=== PATIENT | female | born 1955 | race Caucasian/White ===

== ENCOUNTER 2019-11-01 06:02 | Observation (INO) ==
--- NOTE | 2019-09-30 19:46 | PAT Medication Instructions ---
Medication Instructions Date of Service September 30, 2019 Home Medications lisinopril 20 mg tablet 20 mg PO QAM 08/01/19 [History Confirmed 09/24/19] pravastatin 40 mg tablet 40 mg PO QPM 08/01/19 [History Confirmed 09/24/19] coenzyme Q10 [CoQ-10] 100 mg PO DAILY 09/24/19 [History Confirmed 09/24/19] multivitamin 1 cap PO DAILY 09/24/19 [History Confirmed 09/24/19] omeprazole magnesium 20 mg PO QAM 09/24/19 [History Confirmed 09/24/19] turmeric root extract 500 mg PO BID 09/24/19 [History Confirmed 09/24/19] STOP taking 2 weeks before surgery (or as soon as possible if surgery is within 2 weeks) coenzyme Q10 [CoQ-10] 100 mg PO DAILY 09/24/19 [History Confirmed 09/24/19] turmeric root extract 500 mg PO BID 09/24/19 [History Confirmed 09/24/19] DO NOT take the morning of surgery lisinopril 20 mg tablet 20 mg PO QAM 08/01/19 [History Confirmed 09/24/19] multivitamin 1 cap PO DAILY 09/24/19 [History Confirmed 09/24/19] Take morning of surgery With a small sip of water, OTHERWISE NOTHING TO EAT OR DRINK AFTER MIDNIGHT: omeprazole magnesium 20 mg PO QAM 09/24/19 [History Confirmed 09/24/19] Take evening before surgery pravastatin 40 mg tablet 40 mg PO QPM 08/01/19 [History Confirmed 09/24/19] Other Notes If you have any questions please call us at [phone] or [phone] or [phone] or [phone]
--- NOTE | 2019-10-01 12:50 | Anesthesiology Consultation ---
Date of Service October 01, 2019 Assessment & Plan (1) Encounter for pre-operative examination: - Awaiting review of preop testing (labs, EKG, CXR). Chart Review Chart Review: Patient seen in Pre Admission Testing Teaching & Discussion Pre-Anesthesia Teaching/Discussion Notes: Instructed NPO after midnight before surgery,except medications with 15 cc of water. Medication instructions provided according to the PAT guidelines. History Surgery Operation Date: 11/01/19 07:00 Proposed Procedures p Right Total Hip Arthroplasty - Edward Koehler MD Height/Weight Height: 5 ft 6 in Weight: 117.9 kg Allergies Allergy/AdvReac Type Severity Reaction Status Date / Time No Known Allergies Allergy Verified 09/24/19 08:04 Medications Home Medications Medication Instructions Recorded Confirmed Last Taken lisinopril 20 mg tablet 20 mg PO QAM 08/01/19 09/24/19 Unknown pravastatin 40 mg tablet 40 mg PO QPM 08/01/19 09/24/19 Unknown coenzyme Q10 [CoQ-10] 100 mg PO DAILY 09/24/19 09/24/19 Unknown multivitamin 1 cap PO DAILY 09/24/19 09/24/19 Unknown omeprazole magnesium 20 mg PO QAM 09/24/19 09/24/19 Unknown turmeric root extract 500 mg PO BID 09/24/19 09/24/19 Unknown Past Medical History Medical History Acid reflux controlled Degenerative joint disease of right hip History of vertigo BPPV Hyperlipidemia Hypertension Morbid obesity Exercise / Class Metabolic Activity II 4-5 Yardwork/Stairs/Walk up hill Past Family History Family History Other Family history of breast cancer in mother Past Surgical History Surgical History History of appendectomy History of colonoscopy History of eye surgery GROWTH REMOVED FROM EYELID History of hand surgery R (PIN REMOVAL) History of right breast biopsy History of tubal ligation Past Anesthesia History No Hx of Anesthesia Complications and No Family Hx of Anesthesia Complications History of PONV No Hx of PONV and Hx of Motion Sickness Social History Smoking Status: Never smoker Do You Dip or Chew Tobacco: No Hx Alcohol Use: Yes Alcohol type: beer alcohol intake frequency: a few times a week Hx Substance Use: No substance use type: does not use Review of Systems Reflux controlled. Patient denies chest pain, shortness of breath, dyspnea on exertion, cough, wheezing, palpitations. Physical Exam Vital Signs VITALS BP 128/81 P 80 TEMP 97.9 SP02 96%R RESP 18 PHYSICAL Full neck and c-spine range of motion. Full TMJ range of motion. TMD 3 nger breaths Mallampati Score 3 Dentition: missing sides, crown on side Lungs: clear throughout to auscultation Cardiac: regular rate and rhythm, no murmurs noted Spine: normal Carotid arteries: negative bruit Extremities: no edema
[2019-10-01 13:54] LABS: Basophils # (auto) 0.02 K/uL (0-0.2); Basophils % (auto) 0.3 %; Eosinophils % (auto) 1.3 %; Hematocrit (blood only) 42.4 % (37-47); Hemoglobin 14.4 g/dL (12.0-16.0); Immature Granulocytes # (auto) 0.01 K/uL (0.00-0.02); Immature Granulocytes % (auto) 0.1 %; Lymphocytes # (auto) 1.42 K/uL (1.2-3.4); Lymphocytes % (auto) 18.9 %; Mean Corpuscular Hemoglobin 29.6 pg (25-34); Mean Corpuscular Volume 87.1 fL (80-100); Mean Platelet Volume 10.2 fL (7.4-10.4); Monocytes # (auto) 0.52 K/uL (0.11-0.59); Monocytes % (auto) 6.9 %; Neutrophils # (auto) 5.44 K/uL (1.4-6.5); Neutrophils % (auto) 72.5 %; Platelet Count 248 K/uL (130-400); RDW Coefficient of Variation 13.7 % (11.5-14.5); RDW Standard Deviation 43.2 fL (36.4-46.3); Red Blood Count 4.87 M/uL (4.2-5.4); White Blood Count 7.51 K/uL (4.8-10.8)
--- NOTE | 2019-10-01 14:04 | XRay Report ---
XR chest Pre-admission PA/Lat CLINICAL HISTORY: Preoperative chest COMPARISON STUDY: No previous studies for comparison. FINDINGS: The cardiac and mediastinal contours are normal. There is no evidence of focal pulmonary co nsolidation. There is no evidence of failure. No pleural effusions are visualized.[ IMPRESSION: No active disease in the chest. ACT 112: Negative or not required by law. Electronically signed by: Radu Garcia M.D. 10/01/2019 2:03 PM
[2019-10-01 14:08] LABS: BUN Creatinine Ratio 19.6 (10-20); Calcium 9.5 mg/dl (8.5-10.1); Creatinine Clr Calc Pharmacy 96.4 ml/min; Est GFR (African American) 94.6; Est GFR (Non-African American) 81.6; Potassium 4.1 mmol/L (3.5-5.1)
[2019-10-01 14:25] LABS: Partial Thromboplastin Ratio 0.9; Partial Thromboplastin Time 24.8 Seconds (21.0-31.0); Prothrombin Time 10.3 Seconds (9.0-12.0)
--- NOTE | 2019-10-01 23:05 | Electrocardiogram Report ---
Test Reason : Blood Pressure : / mmHG Vent. Rate : 083 BPM Atrial Rate : 083 BPM P-R Int : 140 ms QRS Dur : 074 ms QT Int : 354 ms P-R-T Axes : 044 037 037 degrees QTc Int : 415 ms Normal sinus rhythm Normal ECG No previous ECGs available Confirmed by Will Munoz ([id number]) on 10/01/2019 11:05:34 PM Referred By: Edward Koehler Confirmed By:Will Munoz
--- NOTE | 2019-10-26 09:54 | History and Physical Report ---
DATE OF ADMISSION: 11/01/2019 CHIEF COMPLAINT: Right hip pain, discomfort, and stiffness. HISTORY OF PRESENT ILLNESS: The patient is a 64-year-old female from [place] who presents for treatment of her right hip. She has a 1-year history of gradually increasing right hip pain and discomfort that has gotten worse despite conservative care. She initially saw her primary care doctor, who has put on some Aleve and ibuprofen which did not help too much. She sought chiropractic treatment which did not help either. She describes groin pain, thigh pain and some buttock pain. The more she walks, the more it hurts. By the end of the day, she has quite a bit of pain and limping quite a bit. She has difficulty putting her shoes and socks on. She would now like to proceed with definitive treatment. PAST MEDICAL HISTORY: 1. Elevated cholesterol. 2. Hypertension. PAST SURGICAL HISTORY: Include: 1. Appendectomy. 2. Tubal ligation. 3. Breast biopsy. ALLERGIES: None. CURRENT MEDICATIONS: 1. Lisinopril. 2. Pravastatin. SOCIAL HISTORY: Significant for 64-year-old female. She is from [place]. I believe she is and . 1-2 drinks per week. She has 2 children. FAMILY HISTORY: Significant for breast cancer. REVIEW OF HISTORY: Negative for diabetes, neurologic problem, vascular problems or bleeding disorders. Denies any chest pain or shortness of breath. No history of DVT or PE. She does have multiple other musculoskeletal aches and pains. PHYSICAL EXAMINATION: GENERAL: Shows a pleasant, middle-aged female, looks to be in pretty good health. HEENT: Benign. NECK: Supple, no lymphadenopathy. LUNGS: Clear to auscultation. HEART: Has a regular rate and rhythm. ABDOMEN: Soft, nontender, nondistended. EXTREMITIES: Grossly neurovascularly intact except as follows. Examination of the right hip revealed patient walks with slightly antalgic gait. Leg lengths clinically appear pretty equal. She does have pain with hip motion. She can internally rotate to neutral at best. External rotation at 25-30 degrees. Negative straight leg raise. She is neurologically intact. X-RAYS: X-rays of the right hip were reviewed. Shows advanced right hip DJD. She has complete loss of her joint space symmetrically. Bone density looks pretty good. Her IM canal is pretty thin. ASSESSMENT: A 64-year-old female with advanced right hip degenerative joint disease. She has failed conservative treatment and would like to have her right hip replaced. PLAN: We are going to proceed with total hip replacement. The risks and benefits of total hip replacement were explained to the patient including but not limited to DVT, PE, , infection, neurological injury, vascular injury, bleeding problem, pain, limited range of motion, stiffness, failure to relieve symptoms, incomplete relief of symptoms, need for further surgery in future, fracture, leg length inequality, nerve palsy, etc. The patient understands and desires to proceed. Informed consent was obtained. As far as discharge plans, she will likely be discharged to home with some home health. She will certainly need some assistance at home. We did talk about holding her lisinopril the morning of surgery.
[~2019-11-01 06:02] MED LIST: ACETAMINOPHEN 500 MG TAB PO SCH; FAMOTIDINE 20 MG TAB PO SCH; GABAPENTIN 300 MG CAP PO SCH; LR 500ML BOLUS, THEN 15ML/HR IV SCH; LR 60ML/HR IV SCH; METOCLOPRAMIDE HCL 10 MG TABLET PO SCH; SCOPOLAMINE 1.5 MG TDSY TD SCH; TRANEXAMIC ACID 1,000 MG **IV Intra-op IV SCH
[2019-11-01] MEDS ORDERED: BUPIVACAINE 0.5 % 5 MG/1 ML PF 10ML VIAL ONE (06:23)
--- NOTE | 2019-11-01 06:53 | History & Physical Bridge Note ---
Date of Service November 01, 2019 History & Physical Bridge Note I have examined the patient, reviewed the History & Physical and in the interval since the performance of the History & Physical I have noted the following changes of clinical significance: no changes noted
[2019-11-01] MEDS: CEFAZOLIN 2000MG 2,000 MG/15 ML SYR IV SCH ×4 (07:05→23:57)
[2019-11-01] MEDS ORDERED: fentaNYL citrate 100 MCG/2 ML VIAL ONE (07:32)
[2019-11-01] MEDS ORDERED: LIDOCAINE HCL 2% 2 ML VIAL/AMP(20MG/ML) INFIL ONE (07:32)
[2019-11-01] MEDS ORDERED: ONDANSETRON INJ 2 MG/ML 2 ML VIAL ONE (07:32)
[2019-11-01] MEDS ORDERED: PROPOFOL IV EMULSION 10 MG/ML 20 ML VIAL IV ONE (07:32)
[2019-11-01] MEDS ORDERED: MIDAZOLAM HCL 1 MG/ML 2ML VIAL ONE (07:32)
[2019-11-01] MEDS ORDERED: MoRPHine SULFATE PF 1 MG/ML 10 ML AMP/VIAL ONE (07:36)
[2019-11-01] MEDS ORDERED: BACITRACIN INJ 50,000 UNIT VIAL ONE (08:35)
[2019-11-01] MEDS ORDERED: BUPIVACAINE/EPINEPHRINE 0.5% MPF 1:200,000 10 ML VIAL ONE (08:35)
[2019-11-01] MEDS ORDERED: VASOPRESSIN 20 UNIT/ML VIAL ONE (10:23)
[2019-11-01] MEDS ORDERED: PHENYLEPHRINE HCL 10 MG/ML VIAL ONE (10:23)
--- NOTE | 2019-11-01 10:51 | Post Operative Brief Note ---
PG Immediate Post Op with CF Date of Surgery November 01, 2019 Pre & Post Diagnosis Operation Date: 11/01/19 08:50 Pre-Op Diagnosis: Right Hip Advanced Degenerative Joint Disease Post-Op Diagnosis: Right Hip Advanced Degenerative Joint Disease I identified the patient and participated in the time-out.: Yes Procedure Operation Date: 11/01/19 08:50 Actual Procedures p Right Total Hip Replacement(Right) - Edward Koehler MD Surgeon Edward Koehler MD Chip Loft Worker Marlon, PAC Estimated Blood Loss 300 Findings Consistent with Post-Op Diagnosis Fluids 2000 cc Specimens Specimen Description: A. Right Femoral Head Drains Alonso Catheter (A 16 Palestinian alonso catheter was inserted by ELIO Frank, without difficulty, clear yellow urine obtained, output to be monitored by Anesthesia.) Anesthesia Type Spinal MAC Complications none Disposition Disposition: Recovery Room
--- NOTE | 2019-11-01 11:03 | Operative Report ---
Post Operative Report Pre & Post Diagnosis Operation Date: 11/01/19 08:50 Pre-Op Diagnosis: Right Hip Advanced Degenerative Joint Disease Post-Op Diagnosis: Right Hip Advanced Degenerative Joint Disease I identified the patient and participated in the time-out.: Yes Procedure Operation Date: 11/01/19 08:50 Actual Procedures p Right Total Hip Replacement(Right) - Edward Koehler MD Surgeon Edward Koehler MD Machine Operator Marlon, PAC Estimated Blood Loss 300 Findings Consistent with Post-Op Diagnosis Operative findings revealed advanced right hip DJD with grade 4 [id number] disease of the femoral head and acetabulum. As she had significant anterior acetabular osteophytes and a large hip joint effusion with some moderate synovitis. Fluids 200 cc. Specimens Right femoral head sent for pathology. Drains None. Anesthesia Type Spinal MAC Complications none Disposition Accompanied Patient To Recovery: Yes Disposition: Recovery Room Indications Patient is a 64-year-old female who is had a little over year history of gradually increasing right hip pain discomfort unresponsive conservative treatment. X-rays were advanced right hip DJD. She failed conservative care and elected proceed with total hip arthroplasty. Description of Procedure Operative implants consisted of: 1. Biomet G7 size 52 mm acetabular shell. 2. 6.5 cancellus acetabular screws 1 of 35 mm length and 1 of 30 mm length. 3. Highly cross-linked polyethylene liner with a 52 mm outer diameter and 32 mm inner diameter. 4. Spalding hole eliminator. 5. Latonia Corail size 10 KLA femoral stem. 6. +5/32 mm ceramic articular ball. Patient was taken to the operating room identified and placed on the operating room table in supine position. All contact areas were appropriately padded. IV antibiotics were provided by anesthesia team. A Grace catheter was placed in sterile fashion. Patient then placed in the left lateral cubitus position. Axillary roll was placed. Stulberg hip positioner was used for positioning. The right hip and leg were then prepped and draped in usual sterile fashion. A posterior lateral approach to the hip was then performed through a curvilinear incision centered over the greater trochanter but sharp dissection got through subcutaneous tissue down to the IT band gluteal fascia the IT band gluteal fascia were then incised longitudinally in line with skin incision. She did have a very thick soft tissue envelope. The greater trochanter bursa was excised. The piriformis, external rotators, and posterior capsule were then released from the posterior aspect of the hip joint as a single layer. Great care was taken throughout the procedure to protect the sciatic nerve at all times. I did tack the piriformis tendon. The hip was internally rotated and dislocated. Femoral neck osteotomy cut was made with Final Cut about 11 mm above the lesser trochanter. Femoral head was removed and sent for pathology. The femur was retracted anteriorly. Attention drawn the acetabulum. The pulmonary fat was excised. The acetabular labrum was excised. Sequential reaming the acetabular was then performed begin with size 45 and progressing up to a 51. A 52 mm Biomet G7 acetabular shell was then placed in about 40 degrees lateral opening and 20 degrees of anteversion. It was fixed with two 6.5 cancellus acetabular screws. Some fairly large anterior osteophytes were removed. Trial liner was placed. Attention drawn the femur. The proximal femur was entered with a cookie-cutter followed by canal finder. I then broached beginning with size 8 and progressing up to a 10. I could not get the tendon down so we did have to place the 9 reamer and then the 9 and half reamer in order to get the implant down the canal. The calcar reamer was used smooth and off the calcar. Hip was then trialed the +5 articular ball provide full stability in full external rotation in extension as well as flexion to 90 degrees internal rotation to 50+ degrees. Soft tissue tension seemed appropriate and leg lengths seem equal. We elect to place these implants. All trial implants were removed. An apex hole limited was placed. Highly cross-linked polyethylene liner was placed. A Latonia KLA size 10 femoral stem was impacted in position. +5/32 mm ceramic articular ball was placed. Hip was located once again found to be stable. Attention drawn toward closing. Pulsatile lavage solution. I did inject locally with 60 cc of half percent Marcaine with epinephrine. The posterior capsule and external rotators were then repaired through drill holes in the posterior trochanter with #2 Tycron suture. The IT band gluteal fascia then closed in 1 PDS suture in a running fashion subcutaneous tissue then closed with 2 layers the deep layer #2 Vicryl suture and subcutaneous tissues with 2-0 Dexon suture in a buried interrupted fashion. Skin was then closed with skin lisseth. A sterile Traci wound VAC dressing was then applied. The patient then transferred to the recovery room in stable condition. Patient tolerated procedure well no complications. All needle sponge counts are correct at the end the operation. I attest to the content of the Intraoperative Record and any orders documented therein. Any exceptions are noted below.
[2019-11-01] MEDS ORDERED: ONDANSETRON INJ 2 MG/ML 2 ML VIAL IV PRN ×2 (11:17→11:50)
[2019-11-01] MEDS ORDERED: ATROPINE SULFATE 0.1 MG/ML 10ML SYR IV PRN (11:17)
[2019-11-01] MEDS ORDERED: fentaNYL citrate 100 MCG/2 ML VIAL IV PRN (11:17)
[2019-11-01] MEDS ORDERED: ePHEDrine sulfate 50 MG/ML AMP IV PRN ×2 (11:17→13:35)
--- NOTE | 2019-11-01 11:19 | Anesthesiology Progress Note ---
Date of Service November 01, 2019 Anesthesia Post Procedure Vital Signs Vital Signs: Temp Pulse Resp BP BP Pulse Ox 11/01/19 11:10 80 16 124/64 93 11/01/19 11:00 82 16 111/64 94 11/01/19 10:50 98.2 F 81 16 108/60 95 11/01/19 06:29 98.2 F 103 H 18 146/89 H 96 Pain Intensity Right Hip: Pain Intensity: 6 Transfer of Care Handoff Completed per policy Notes Mental Status: alert / awake / arousable and participated in evaluation Patient Amnestic to Procedure: Yes Nausea / Vomiting: adequately controlled Pain: adequately controlled Airway Patency, RR, SpO2: stable & adequate BP & HR: stable & adequate Hydration State: stable & adequate Neuraxial Anesthesia: was administered and sensory block is resolving Anesthetic Complications: no major complications apparent and Pt Satisfied with anesthetic care
[2019-11-01] MEDS ORDERED: METOCLOPRAMIDE HCL INJ 5 MG/ML 2 ML VIAL IV PRN (11:50)
[2019-11-01] MEDS ORDERED: TRAMADOL HCL 50 MG TABLET PO PRN (11:50)
[2019-11-01] MEDS ORDERED: ALUMINUM/MAGNESIUM SUSP 30 ML UDC PO PRN (11:50)
[2019-11-01] MEDS ORDERED: HYDROmorphone INJ 0.5 MG/0.5 ML SYR IV PRN (11:50)
[2019-11-01] MEDS ORDERED: NALOXONE HCL 0.4 MG/1 ML VIAL/CARP IV PRN ×2 (11:50→13:35)
[2019-11-01] MEDS ORDERED: MAGNESIUM HYDROXIDE SUSP 30 ML UDC PO PRN (11:50)
[2019-11-01] MEDS ORDERED: bisacodyL 10 MG SUPP PR PRN (11:50)
--- NOTE | 2019-11-01 11:51 | XRay Report ---
XR hip 1V RT w pelvis CLINICAL HISTORY: IN PACU - A/P PELVIS and LATERAL HIP COMPARISON: None. DISCUSSION: There are postsurgical changes of a total right hip arthroplasty. The femoral and acetabu lar components appear well seated. There are no fractures or dislocations. There is gas within soft t issues consistent with recent surgery. Incidental note is made of presumed bilateral tubal ablation c lamps. IMPRESSION: Postsurgical changes of a total right hip arthroplasty. No complicating features identifi ed. ACT 112: Negative or not required by law. Electronically signed by: Radu Garcia M.D. 11/01/2019 11:50 AM
[2019-11-01] MEDS: SODIUM CHLORIDE 0.9% 1000ML 1,000 ML IV SCH ×3 (12:00→20:21)
[2019-11-01] MEDS: KETOROLAC 30 MG/ML VIAL IV SCH ×3 (13:02→23:57)
[2019-11-01] MEDS: ACETAMINOPHEN 500 MG TAB PO SCH ×2 (13:02→21:02)
[2019-11-01] MEDS ORDERED: NALOXONE HCL 1 MG in SODIUM CHLORIDE 0.9% 1000ML 1,000 ML IV PRN (13:35)
[2019-11-01] MEDS ORDERED: LACTATED RINGER'S 500 ML IV PRN (13:35)
[2019-11-01] MEDS ORDERED: MEPERIDINE HCL 25 MG/ML CARP IV PRN (13:35)
[2019-11-01] MEDS ORDERED: DiphenhydrAMINE HCL 50 MG/ML VIAL IV PRN (13:35)
[2019-11-01] MEDS ORDERED: NALOXONE HCL 0.08 MG in SYRINGE 1.8 ML IV PRN (13:35)
[2019-11-01] MEDS ORDERED: NALBUPHINE HCL INJ 10 MG/ML AMP IV PRN (13:35)
[2019-11-01] MEDS ORDERED: MoRPHine SULFATE PF 1 MG/ML 10 ML AMP/VIAL INT SPINAL ONE (13:35)
[2019-11-01] MEDS ORDERED: NO NARCOTICS OR SEDATIVES SCH (13:45)
[2019-11-01] MEDS ORDERED: DC INTRASPINAL MORPHINE SCH (13:45)
[2019-11-01] MEDS: CHECK SCOPOLAMINE PATCH PLACEMENT SCH ×2 (16:32→23:57)
[2019-11-01] MEDS: ASCORBIC ACID 500 MG TAB PO SCH (16:34)
[2019-11-01] MEDS: FERROUS GLUCONATE 324 MG TAB PO SCH (16:34)
[2019-11-01] MEDS ORDERED: TRANEXAMIC ACID / 0.7% NACL 1,000 MG/100 ML BAG IV SCH (17:00)
--- NOTE | 2019-11-01 17:53 | Progress Note ---
DATE: 11/01/2019 SUBJECTIVE: A 64-year-old female postop from a right total hip replacement. She is doing well. Really not having any pain yet. No chest pain or shortness of breath. Not feeling dizzy or lightheaded. OBJECTIVE: VITAL SIGNS: Temperature 36.3. Vital signs stable. GENERAL: Shows a pleasant, middle-aged female. She is sitting on bed, looks pretty comfortable. LUNGS: Clear to auscultation. HEART: Regular rate and rhythm. ABDOMEN: Soft, nontender, nondistended. EXTREMITIES: Grossly neurovascularly intact except as follows. Examination of the right leg reveals the leg to be well aligned. Her Prevena dressings in place. Thigh is soft and supple. Leg lengths are equal. She is neurologically intact. She can dorsiflex and plantarflex her foot appropriately. X-RAYS: X-rays of the right hip from recovery room reviewed. It shows a right uncemented total hip arthroplasty. Components looked to be in good position. No signs of problems. ASSESSMENT: A 64-year-old female postop from a right hip replacement, doing well. Hip is located. She is neurologically intact. Pain is controlled. PLAN: 1. DVT prophylaxis including thigh-high TEDs, SCDs, and aspirin twice a day. 2. PT/OT. Weight bear as tolerated. Right total hip protocol. 3. Pain control, doing well with current pain regimen. 4. IV antibiotics x24 hours. 5. Disposition: She is planning to be discharged home with some home health once adequately recovered and medically stable.
[2019-11-01] MEDS ORDERED: SENNA 8.6 MG TAB PO SCH (21:00)
[2019-11-01] MEDS ORDERED: NON-FORMULARY MEDICATION (Turmeric Root Extract 500 MG) PO SCH (21:00)
[2019-11-01] MEDS ORDERED: PRAVASTATIN SOD 40 MG TAB PO SCH (21:00)
[2019-11-01] MEDS: DOCUSATE SODIUM 100 MG CAP PO SCH (21:02)
[2019-11-01] MEDS: ASPIRIN 81 MG ECTAB PO SCH (21:02)
[2019-11-02] MEDS: SODIUM CHLORIDE 0.9% 1000ML 1,000 ML IV SCH ×2 (05:44→05:45)
[2019-11-02] MEDS: ACETAMINOPHEN 500 MG TAB PO SCH (05:45)
[2019-11-02] MEDS: KETOROLAC 30 MG/ML VIAL IV SCH (05:46)
[2019-11-02 05:59] LABS: Basophils # (auto) 0.01 K/uL (0-0.2); Basophils % (auto) 0.1 %; Eosinophils # (auto) 0.03 K/uL (0-0.5); Eosinophils % (auto) 0.4 %; Hematocrit (blood only) 33.2 % (37-47); Hemoglobin 10.9 g/dL (12.0-16.0); Immature Granulocytes # (auto) 0.01 K/uL (0.00-0.02); Immature Granulocytes % (auto) 0.1 %; Lymphocytes % (auto) 12.8 %; Mean Corpuscular Hemoglobin 28.8 pg (25-34); Mean Corpuscular Hgb Conc 32.8 g/dL (32-36); Mean Corpuscular Volume 87.6 fL (80-100); Mean Platelet Volume 10.4 fL (7.4-10.4); Monocytes # (auto) 0.67 K/uL (0.11-0.59); Monocytes % (auto) 8.6 %; Neutrophils # (auto) 6.08 K/uL (1.4-6.5); Platelet Count 170 K/uL (130-400); RDW Coefficient of Variation 13.4 % (11.5-14.5); RDW Standard Deviation 43.1 fL (36.4-46.3); Red Blood Count 3.79 M/uL (4.2-5.4)
[2019-11-02 06:33] LABS: BUN Creatinine Ratio 17.5 (10-20); Est GFR (African American) 91.7; Est GFR (Non-African American) 79.1; Potassium 3.8 mmol/L (3.5-5.1)
[2019-11-02] MEDS: CHECK SCOPOLAMINE PATCH PLACEMENT SCH (08:12)
[2019-11-02] MEDS: ASCORBIC ACID 500 MG TAB PO SCH (08:13)
[2019-11-02] MEDS: FERROUS GLUCONATE 324 MG TAB PO SCH (08:13)
[2019-11-02] MEDS: DOCUSATE SODIUM 100 MG CAP PO SCH (08:13)
[2019-11-02] MEDS: ASPIRIN 81 MG ECTAB PO SCH (08:13)
[2019-11-02] MEDS ORDERED: MULTIVITAMIN TAB PO SCH (09:00)
[2019-11-02] MEDS ORDERED: NON-FORMULARY MEDICATION (Coenzyme Q10 [Coq-10] 100 MG) PO SCH (09:00)
[2019-11-02] MEDS ORDERED: lisinopriL 20 MG TAB PO SCH (09:00)
[2019-11-02] MEDS ORDERED: PANTOprazole 40 MG TAB PO SCH (09:00)
[2019-11-02] MEDS ORDERED: NON-FORMULARY MEDICATION (Multivitamin 1 CAP) PO SCH (09:00)
--- NOTE | 2019-11-02 09:13 | Progress Note ---
DATE: 11/02/2019 SUBJECTIVE: A 64-year-old female postop day 1 from right total hip replacement. She is doing well. Had good night. Denies any significant pain. No chest pain or shortness of breath. Not feeling dizzy or lightheaded. She would like to go home if she does okay in therapy. OBJECTIVE: VITAL SIGNS: Temperature 36.4. Vital signs are stable. GENERAL: Shows a pleasant, middle-aged female. I had to wake her this morning. She looks comfortable. She is lying in bed. EXTREMITIES: Examination of the right hip reveals the Prevena wound VAC to be in place. Leg lengths were equal. Dressing is clean, dry and intact. Thigh is soft and supple. She is neurologically intact. LABORATORY DATA: Hemoglobin is 10.9. Hematocrit 33.2. Electrolytes are stable. ASSESSMENT: A 64-year-old female postoperative day 1 from right hip replacement, doing well. Pain is controlled. Hip is located. She is neurologically intact. PLAN: 1. DVT prophylaxis including thigh-high TEDs, SCDs, and aspirin twice a day. 2. PT/OT. Weight bear as tolerated. Right total hip protocol. 3. Pain control, doing well with current pain regimen. 4. Disposition: We are going to see how she does in therapy. She is hoping to be discharged to home with some home health. We will see how therapy goes today.
--- NOTE | 2019-11-05 15:06 | Discharge Summary ---
ADMITTING PHYSICIAN AND SURGEON: Dr. Edward Koehler. ADMITTING DIAGNOSIS: Right hip degenerative joint disease. SURGERY PERFORMED: Right total hip arthroplasty. SECONDARY DIAGNOSES: Elevated cholesterol, hypertension. CONSULTS: None obtained. HISTORY AND PHYSICAL EXAMINATION: Well documented in the patient's chart. HOSPITAL COURSE: The patient was admitted on 11/01/2019 underwent total hip arthroplasty, tolerated the procedure well. There were no complications. She was transferred to the PACU postoperatively and later to the orthopedic floor for further care. She was given Ancef for antibiotic prophylaxis, [place] stockings, SCDs and aspirin for DVT prophylaxis. Hemoglobin, hematocrit and vital signs were monitored during her hospital stay and remained stable. She did not require any blood transfusions. There were no complications. By postoperative day 1 she was tolerating a regular diet, pain was controlled with oral pain medicine. She was participating in physical therapy. Postop day 1 she was discharged home. She was given printed discharge instructions as well as new prescriptions for extra strength Tylenol, aspirin and tramadol. Continue her home medicines. Continue physical therapy, weightbearing as tolerated, [place] stockings, total hip precautions. Follow up approximately 2 weeks postop or sooner if there are any problems or concerns.
== END 2019-11-02 12:06 | disposition home or self-care (01) ==
LOC: 3E 06:02 → ASU 06:02